=== PATIENT | female | born 1975 | race Caucasian/White ===

== ENCOUNTER 2024-04-28 11:05 | Inpatient (IN) | payer MEDICAID ==
[~2024-04-28] VITALS: Ht 162.6 cm; Wt 82.6 kg
[2024-04-28] MEDS ORDERED: MORPHINE SULFATE INJ 2 MG/ML DISP.SYRIN IV PRN (16:30)
[2024-04-28] MEDS ORDERED: ONDANSETRON HCL/PF 4 MG/2 ML VIAL IVP PRN (16:30)
[2024-04-28] MEDS ORDERED: NITROGLYCERIN 0.4 MG/TAB BOTTLE SL PRN (16:30)
[2024-04-28] MEDS ORDERED: Z GUARD REMEDY 4 OZ OINT TP PRN (16:30)
[2024-04-28] MEDS ORDERED: DEXTROSE 50%-WATER 50 ML DISP.SYRIN IV PRN (16:30)
[2024-04-28] MEDS ORDERED: MAGNESIUM HYDROXIDE 30 ML UDC PO PRN (16:30)
[2024-04-28] MEDS ORDERED: HYDROCODONE/APAP 5/325MG TABLET PO PRN (16:30)
[2024-04-28] MEDS ORDERED: MAG HYDROX/AL HYDROX/SIMETH 30 ML UDC PO PRN (16:30)
[2024-04-28] MEDS: LOSARTAN POTASSIUM 25 MG TABLET PO SCH (17:13)
[2024-04-28] MEDS: BLOOD SUGAR DIAGNOSTIC 1 EACH STRIP IN SCH (17:52)
[2024-04-28] MEDS: INSULIN REGULAR, HUMAN 100 UNIT/ML 3 ML VIAL SQ PRN (17:54)
[2024-04-28 20:00] VITALS: BP 122/76; TEMP 98.4; O2SAT 98
[2024-04-28] MEDS: ACETAMINOPHEN 325 MG TABLET PO PRN (21:12)
[2024-04-29] VITALS (7 sets, daily range): BP systolic 91–156; BP diastolic 68–97; TEMP 98.2–98.6; O2SAT 96–99
[2024-04-29 06:56] LABS: BASOPHILS % (AUTO) 0.4 % (0.0-2.0); EOSINOPHILS % (AUTO) 0.6 % (0.0-6.0); HEMATOCRIT 36 % (33-45); HEMOGLOBIN 12.7 g/dL (11.5-14.8); LYMPHOCYTES # (AUTO) 2.1 K/uL (0.8-4.8); LYMPHOCYTES % (AUTO) 30.1 % (20.0-44.0); MEAN CORPUSCULAR HEMOGLOBIN 32 PG (26.0-33.0); MEAN CORPUSCULAR HGB CONC 35 g/dl (31.0-36.0); MEAN CORPUSCULAR VOLUME 91 fL (82-100); MONOCYTES # (AUTO) 0.4 K/uL (0.1-1.30); MONOCYTES % (AUTO) 6.1 % (2.0-12.0); NEUTROPHILS # (AUTO) 4.4 K/uL (1.8-8.9); NEUTROPHILS % (AUTO) 62.8 % (43.0-81.0); PLATELET COUNT (AUTO) 247 K/uL (150-450); RED BLOOD CELL COUNT(AUTO) 3.98 MIL/uL (4.0-5.2); RED CELL DISTRIBUTION WIDTH 12.4 % (11.5-15.0)
[2024-04-29 07:15] LABS: CALCIUM, SERUM 9.2 mg/dL (8.5-10.1); CREATININE 0.6 mg/dL (0.6-1.3); MAGNESIUM 2.1 mg/dL (1.8-2.4); PHOSPHORUS 3.3 mg/dL (2.5-4.9); POTASSIUM 3.4 mmol/L (3.5-5.1)
[2024-04-29 07:23] LABS: THYROID STIMULATING HORMONE 2.52 uIU/mL (0.358-3.74)
[2024-04-29 09:11] LABS: PREGNANCY TEST URINE QUAL NEGATIVE (NEGATIVE)
[2024-04-29 09:12] LABS: APPEARANCE,URINE CLEAR (CLEAR); BILIRUBIN,URINE NEGATIVE (NEGATIVE); BLOOD, URINE NEGATIVE Ery/uL (NEGATIVE); COLOR,URINE YELLOW (YELLOW); KETONES,URINE TRACE mg/dL (NEGATIVE); LEUKOCYTE ESTERASE ,URINE NEGATIVE (NEGATIVE); NITRITE, URINE NEGATIVE (NEGATIVE); PROTEIN,URINE NEGATIVE (NEGATIVE); UGLUCOSE NEGATIVE (NEGATIVE); UROBILINOGEN,URINE 0.2 EU/dL (0.2)
[2024-04-29 09:14] LABS: ADD URINE CULTURE NO; BACTERIA,URINE Rare /HPF (None Seen); RBC,URINE 0-2 /HPF (0-2); SQUAMOUS EPITHELIAL CELL,UR Few /HPF (None Seen); WBC,URINE 0-2 /HPF (0-3)
[2024-04-29] MEDS: PANTOPRAZOLE 40 MG TABLET.DR PO SCH (09:34)
[2024-04-29] MEDS: ASPIRIN EC 81 MG TABLET.DR PO SCH (09:40)
[2024-04-29] MEDS: POTASSIUM CHLORIDE 20 MEQ TAB.PRT.SR PO SCH (10:51)
[2024-04-29] MEDS: AMLODIPINE BESYLATE 5 MG TABLET PO SCH (21:14)
[2024-04-30] VITALS: BP 136/72; TEMP 98.2; O2SAT 98
[2024-04-30 05:00] VITALS: BP 121/82; TEMP 98.2; O2SAT 95
[2024-04-30 07:30] VITALS: BP 132/86; TEMP 98.2; O2SAT 96
[2024-04-30 07:39] LABS: CREATININE 0.5 mg/dL (0.6-1.3); POTASSIUM 3.4 mmol/L (3.5-5.1)
[2024-04-30 08:10] VITALS: BP 132/86
[2024-04-30] MEDS ORDERED: AMLO-212 PO (11:06)
[2024-04-30] MEDS ORDERED: METF-440 PO (11:06)
[2024-04-30] MEDS ORDERED: ATOR20TA PO (11:06)
[2024-04-30] MEDS ORDERED: LOSA25TA27 PO (11:06)
== END 2024-04-30 13:30 | disposition home or self-care (01) | DRG 199 ==
LOC: TELE 14:10
DX: I16.0 Hypertensive urgency (principal); I21.A1 Myocardial infarction type 2; E11.65 Type 2 diabetes mellitus with hyperglycemia; E66.9 Obesity, unspecified; I10 Essential (primary) hypertension; Z68.31 Body mass index [BMI] 31.0-31.9, adult
CPT/HCPCS: 36415; 80048-TC; 80061-TC; 81001; 82962-TC; 83735-TC; 84100-TC; 84443-TC; 84484-TC; 84703-TC; 85025-TC; 93307-TC; G0378; J1815